=== PATIENT | male | born 1975 | race Hispanic/Latino ===

== ENCOUNTER 2022-01-07 21:41 | Emergency (ER) | payer BC ==
[2022-01-07] MEDS ORDERED: Lidocaine 1% PF 5 ML VIAL ONE (21:46)
[2022-01-07] MEDS ORDERED: Bacitracin 1 PK ONE (23:00)
== END 2022-01-07 23:13 | disposition home or self-care (01) ==
LOC: ERS 21:41
DX: S63.283A Dislocation of proximal interphalangeal joint of left middle finger, initial encounter (principal); W19.XXXA Unspecified fall, initial encounter
CPT/HCPCS: 26770